=== PATIENT | female | born 1985 | race Caucasian/White ===

== ENCOUNTER 2017-11-23 19:48 | Emergency (ER) | END 2017-11-25 10:01 | disposition home or self-care (01) | DX: F19.14 Other psychoactive substance abuse with psychoactive substance-induced mood disorder (principal) | CPT/HCPCS: 80053; 80307; 84703; 85025; 96361; 96372; 96374; 96375; 99284; J1885; J2060; J7030 ==

== ENCOUNTER 2017-12-11 14:07 | Emergency (ER) | payer SELFPAY ==
[~2017-12-11] VITALS: Ht 157.5 cm; Wt 60.0 kg
[2017-12-11 14:33] VITALS: BP 145/114; PULSE 102; RESP 16; TEMP 98.2; O2SAT 98
--- NOTE | 2017-12-11 16:22 | PD ---
HPI . Substance abuse Chief Complaint: Medical Clearance Time Seen by Provider: 16:19 Travel History International Travel<30 days: No Contact w/Intl Traveler<30days: No Traveled to known affect area: No History of Present Illness HPI This patient presents to us voluntarily probably accompanied by her father (it is an older gentleman) because of substance abuse. She states she is interested in inpatient treatment for substance abuse. She specifically uses Dilaudid. History Past Medical Histgory LMP: 11/21/17 Social History Alcohol Use: No Tobacco Use: No Allergies-Medications (Allergen,Severity, Reaction): Coded Allergies: No Known Allergies (Unverified Adverse Reaction, Unknown, 12/11/17) Reported Meds & Prescriptions Reported Meds & Active Scripts Active No Active Prescriptions or Reported Medications Review of Systems Except as stated in HPI: all other systems reviewed are Neg Psychiatric: Positive: Substance Abuse Physical Exam Narrative GENERAL: Awake and alert and in no acute distress. SKIN: Warm and dry. Normal color and turgor. HEAD: Normocephalic/atraumatic. EYES: Pupils are equal. Extraocular movements are intact. NECK: Normal range of motion. Supple. CARDIOVASCULAR: Regular rate and rhythm. RESPIRATORY: Nonlabored respirations. Normal sats. MUSCULOSKELETAL: Atraumatic. Normal muscle tone. NEUROLOGICAL: A and O 3. Nonfocal. PSYCHIATRIC: Appropriate mood and affect. Data Data Last Documented VS Vital Signs Date Time Temp Pulse Resp B/P (MAP) Pulse Ox O2 Delivery O2 Flow Rate FiO2 12/11/17 14:33 98.2 102 16 145/114 (124) 98 MDM Medical Screen Exam Complete: Yes Emergency Medical Condition: No Narrative Course This patient presents to us requesting detox from Dilaudid. [place] [facility] [place] Quique Wilkins. A medical screening exam was performed: At the time of evaluation the presenting medical condition was determined not to be of an emergent nature. The patient was given the option of receiving additional care, but declined. Patient was given options for additional community resources from which to obtain care. The Patient Has Been advised to seek medical attention for their presenting complaint. The patient has been advised to return to the ER at any time if an emergent condition develops. Primary Impression: Encounter for medical screening examination Scripts No Active Prescriptions or Reported Meds Condition: Karen Rome MD Dec 11, 2017 16:22
== END 2017-12-11 16:29 | disposition left against medical advice (07) ==
LOC: NEPD 14:07
DX: F19.10 Other psychoactive substance abuse, uncomplicated (principal)
CPT/HCPCS: 99281